=== PATIENT | female | born 1985 | race Caucasian/White ===

== ENCOUNTER → 2017-05-21 | Outpatient (CLI) | payer OTHER | END | disposition home or self-care (01) | LOC: C.LABSPEC 13:30 | PROVIDERS: ATTEND Obstetrics & Gynecology | DX: Z34.01 Encounter for supervision of normal first pregnancy, first trimester (principal); Z3A.00 Weeks of gestation of pregnancy not specified ==

== ENCOUNTER → 2017-05-26 | Outpatient (CLI) | payer OTHER ==
[2017-05-26 12:13] LABS: BASO % 0.3 %; BASO ABS # 0.02 K/uL (0-0.2); EOS ABS # 0.07 K/uL (0-0.5); HEMATOCRIT 35.6 % (37-47); IG# 0.01 K/uL (0.00-0.02); LYMPH % 24.3 %; LYMPH ABS # 1.74 K/uL (1.2-3.4); MEAN CELL VOLUME 89.9 fL (80-100); MEAN CORPUSCULAR HEMOGLOBIN 30.3 pg (25-34); MEAN CORPUSCULAR HGB CONC 33.7 g/dl (32-36); MEAN PLATELET VOLUME 9.5 fL (7.4-10.4); MONO % 6.7 %; MONO ABS # 0.48 K/uL (0.11-0.59); NEUT % 67.6 %; NEUT ABS # 4.85 K/uL (1.4-6.5); PLATELET COUNT 249 K/uL (130-400); RED CELL DISTRIBUTION WIDTH CV 12.2 % (11.5-14.5); RED CELL DISTRIBUTION WIDTH SD 39.9 fL (36.4-46.3); WHITE BLOOD COUNT 7.17 K/uL (4.8-10.8)
== END | disposition home or self-care (01) ==
LOC: C.LAB1850 10:46
PROVIDERS: ATTEND Obstetrics & Gynecology
DX: O99.283 Endocrine, nutritional and metabolic diseases complicating pregnancy, third trimester (principal); Z3A.00 Weeks of gestation of pregnancy not specified

== ENCOUNTER → 2017-06-30 | Outpatient (CLI) | payer OTHER | END | disposition home or self-care (01) | LOC: C.LAB1850 11:08 | PROVIDERS: ATTEND Internal Medicine Endocrinology, Diabetes & Metabolism | DX: E03.9 Hypothyroidism, unspecified (principal) ==

== ENCOUNTER → 2017-07-14 | Outpatient (CLI) | payer OTHER | END | disposition home or self-care (01) | LOC: C.LAB1850 09:37 | PROVIDERS: ATTEND Obstetrics & Gynecology | DX: O99.282 Endocrine, nutritional and metabolic diseases complicating pregnancy, second trimester (principal) ==

== ENCOUNTER → 2017-08-11 | Outpatient (CLI) | payer OTHER | END | disposition home or self-care (01) | LOC: C.LAB1850 10:07 | PROVIDERS: ATTEND Internal Medicine Endocrinology, Diabetes & Metabolism | DX: O99.282 Endocrine, nutritional and metabolic diseases complicating pregnancy, second trimester (principal); Z3A.00 Weeks of gestation of pregnancy not specified ==

== ENCOUNTER 2017-10-22 08:38 | Emergency (ER) | payer OTHER ==
[~2017-10-22] VITALS: Ht 177.8 cm; Wt 83.3 kg
[2017-10-22 08:43] VITALS: TEMP 36.9; Ht 177.8 cm; Wt 83.3 kg
[2017-10-22] MEDS ORDERED: HYDROCORTISONE HC 2.5% CRM 30GM TUBE EXT STA (09:00)
[2017-10-22] MEDS ORDERED: HYDROCORTISONE ACETATE 25 MG SUPP PR STA (09:00)
[2017-10-22] MEDS ORDERED: LIDOCAINE/EPINEPHRINE 1% 20 ML VIAL INFIL STA (09:00)
[2017-10-22] MEDS ORDERED: SENN1TAB77 PO (09:45)
[2017-10-22] MEDS ORDERED: DOCU-94 PO (09:45)
[2017-10-22 10:20] VITALS: BP 112/81; PULSE 66; O2SAT 100
--- NOTE | 2017-10-22 13:20 | EMERGENCY ROOM VISIT NOTE ---
History Report prepared by Camila: Zoey Ram Under the Supervision of: Dr. Nikita Black M.D. First contact with patient: 09:00 Chief Complaint: REFERRED BY DOCTOR Stated Complaint: THROMBOSED HEMORRHOID History of Present Illness The patient is a 32 year old female who presents to the Emergency Room with complaints of worsening rectal pain starting last night. The patient had difficulty sleeping through the night because the pain worsened last night. She was sent to the ED from [facility] for a thrombosed hemorrhoid. She has been using ice, sitz bath, and preparation H to no significant relief. She is currently 31 weeks . Her has been going well. Source of History: patient Onset: last night Position: other (rectal) Quality: other (thrombosed hemorrhoid) Timing: worsening Modifying Factors (Relieving): ice, other (sitz bath, preparation H) Review of Systems See HPI for pertinent positives & negatives. A total of 10 systems reviewed and were otherwise negative. Past Medical & Surgical Patient is 31 weeks with her first . Family History No pertinent family history stated Social History Smoking Status: Never Smoker Marital Status: Housing Status: lives with significant other Occupation Status: employed Current/Historical Medications Scheduled Docusate Sodium (Colace), 1 CAP PO BID Sennosides (Senokot), 8.6 MG PO HS Physical Exam Vital Signs Date Time Temp Pulse Resp B/P (MAP) Pulse Ox O2 Delivery O2 Flow Rate FiO2 10/22/17 10:20 66 20 112/81 100 10/22/17 08:43 36.9 110 18 116/65 95 Room Air Physical Exam GENERAL: Awake, alert, well-appearing, in no acute distress HENT: Normocephalic, atraumatic. Oropharynx unremarkable. EYES: Normal conjunctiva. Sclera non-icteric. NECK: Supple. No nuchal rigidity. FROM. No JVD. RESPIRATORY: Clear to auscultation. CARDIAC: Regular rate, normal rhythm. Extremities warm and well perfused. Pulses equal. ABDOMEN: Soft, non-distended. No tenderness to palpation. No rebound or guarding. No masses. RECTAL: Large thrombosed hemorrhoid, exquisitely tender to touch. MUSCULOSKELETAL: Chest examination reveals no tenderness. The back is symmetrical on inspection without obvious abnormality. There is no CVA tenderness to palpation. No joint edema. LOWER EXTREMITIES: Calves are equal size bilaterally and non-tender. No edema. No discoloration. NEURO: Normal sensorium. No sensory or motor deficits noted. SKIN: No rash or jaundice noted. Medical Decision & Procedures Procedure Hemorrhoid was anesthetized with 1% lidocaine with epinephrine. Iodine was applied to the area. An incision was made and thrombosed contents were removed. Patient tolerated the procedure well. ED Course 905: Past medical records reviewed. The patient was evaluated in room A4B. A complete history and physical examination was performed. 909: I treated the thrombosed hemorrhoid according to the procedure note. I discussed results and treatment plan with the patient. She verbalizes agreement and understanding. The patient is ready for discharge. Medical Decision This is a 32-year-old female who presents emergency department complaining of large hemorrhoid. This was incised as above. The patient is going to follow- up with surgery for her hemorrhoids and was in agreement with the treatment plan. Medication Reconcilliation Current Medication List: was personally reviewed by me Blood Pressure Screening Patient's blood pressure: Normal blood pressure Impression Primary Impression: Acute hemorrhoid Scribe Attestation The scribe's documentation has been prepared under my direction and personally reviewed by me in its entirety. I confirm that the note above accurately reflects all work, treatment, procedures, and medical decision making performed by me. Departure Information Dispostion Home / Self-Care Prescriptions Docusate Sodium (COLACE) 100 Mg Cap 1 CAP PO BID for 30 Days, #60 CAP Prov: Nikita Black MD 10/22/17 Sennosides (SENOKOT) 8.6 Mg Tab 8.6 MG PO HS for 30 Days, #30 TAB Prov: Nikita Black MD 10/22/17 Referrals No Doctor, Assigned (PCP) Shawn Tidwell, DO Forms HOME CARE DOCUMENTATION FORM, IMPORTANT VISIT INFORMATION, WORK / SCHOOL INSTRUCTIONS Patient Instructions Hemorrhoid Surg Dc, Hemorrhoids, Hemorrhoids Thrombosed, My [facility] Additional Instructions Take 10 oz bottle of Miralax add to 16 oz of gatorade Drink slowly over next 48 hours Prep H safe in Take 1000 mg Tylenol every 6 hours Follow up with DR Ricci's office You have been examined and treated today on an emergency basis only. This is not a substitute for, or an effort to provide, complete comprehensive medical care. It is impossible to recognize and treat all injuries or illnesses in a single emergency department visit. It is therefore important that you follow up closely with your PCP. Call as soon as possible for an appointment. Thank you for your time and consideration. I look forward to speaking with you again soon. Please don't hesitate to call us if you have any questions.
== END 2017-10-22 10:23 | disposition home or self-care (01) ==
LOC: C.EDB 08:39 → C.EDA 10:23
DX: O22.43 Hemorrhoids in pregnancy, third trimester (principal); Z3A.31 31 weeks gestation of pregnancy; Z79.899 Other long term (current) drug therapy

== ENCOUNTER 2021-09-27 09:03 | Inpatient (IN) ==
--- NOTE | 2021-09-24 11:06 | Anesthesiology Consultation ---
Date of Service September 24, 2021 Assessment & Plan (1) Encounter for pre-operative examination: Chart Review Chart Review: carpentry supervisor initiated Pt desires (hx of complicated hemorrhoids requiring multiple surgeries) per OB records Per nursing assessment 09/24/2021, pt admits to local travel only. Wears mask in public. No known Covid positive exposures or Covid related symptoms. No known Covid infection in the past 90 days. Pt is fully vaccinated for Covid. Preop Covid testing scheduled 09/25/21= will await results Labor epidural 12/22/17= Done at L3-4. History Surgery Operation Date: 09/27/21 10:30 Proposed Procedures p Section (Delivery of Baby through Abdominal Incision) - Tere Garcia MD, FACOG Height/Weight Height: 5 ft 10 in Weight: 86.183 kg Allergies Allergy/AdvReac Type Severity Reaction Status Date / Time peach Allergy Mild Swelling Verified 09/23/21 13:47 of Lip/Tongue/Throat No Known Drug Allergies Allergy Verified 09/23/21 13:47 Medications Home Medications Medication Instructions Recorded Confirmed Last Taken cetirizine 10 mg tablet (Zyrtec) 10 mg PO DAILY PRN 11/28/18 09/24/21 Unknown hydrocortisone acetate 25 mg 25 mg WA BID PRN 09/24/21 09/24/21 Unknown rectal suppository levothyroxine 175 mcg tablet 175 mcg PO QAM 09/24/21 09/24/21 Unknown (Synthroid) prenat.vits,laura,[id number] 1 tab PO QAM 09/24/21 09/24/21 Unknown Past Medical History Medical History Asthma History of childhood asthma- now more seasonal External hemorrhoids with complication Hypothyroidism Nausea and vomiting after administration of anesthetic agent Past Family History Family History Sister Cystic fibrosis carrier Thyroid disease Aunt Multiple sclerosis Mother Multiple sclerosis Thyroid disease Aunt Rheumatoid arthritis Past Surgical History Surgical History History of colonoscopy History of foot surgery screws in left foot History of rectal surgery hemorrhoidectomy 2019 History of wisdom tooth extraction Social History Smoking Status: Never smoker Do You Dip or Chew Tobacco: No Hx Alcohol Use: Yes Alcohol type: wine alcohol intake frequency: a few times a month Hx Substance Use: No substance use type: does not use
[~2021-09-27 09:03] MED LIST: CITRIC ACID/SODIUM CITRATE 15 ML UDC PO SCH; LACTATED RINGER'S 1,000 ML IV SCH
[2021-09-27] MEDS ORDERED: MoRPHine SULFATE PF 1 MG/ML 10 ML AMP/VIAL ONE (12:42)
[2021-09-27] MEDS ORDERED: fentaNYL citrate 100 MCG/2 ML VIAL ONE (12:42)
[2021-09-27] MEDS ORDERED: LACTATED RINGER'S 1,000 ML IV PRN (12:47)
--- NOTE | 2021-09-27 13:16 | History & Physical Bridge Note ---
Date of Service September 27, 2021 History & Physical Bridge Note I have examined the patient, reviewed the History & Physical and in the interval since the performance of the History & Physical I have noted the following changes of clinical significance: no changes noted
[2021-09-27 13:26] LABS: Hematocrit (blood only) 31.2 % (37-47); Hemoglobin 9.8 g/dL (12.0-16.0); Mean Corpuscular Hgb Conc 31.4 g/dL (32-36); Mean Corpuscular Volume 92.3 fL (80-100); Mean Platelet Volume 10.9 fL (7.4-10.4); Platelet Count 163 K/uL (130-400); RDW Coefficient of Variation 13.6 % (11.5-14.5); RDW Standard Deviation 45.7 fL (36.4-46.3); Red Blood Count 3.38 M/uL (4.2-5.4)
[2021-09-27] MEDS ORDERED: ceFAZolin 2000MG 2,000 MG/15 ML SYR IV ONE (13:30)
[2021-09-27] MEDS ORDERED: PHENYLEPHRINE 100MCG/ML 5ML SYR ONE (13:36)
[2021-09-27] MEDS ORDERED: OXYTOCIN 10 UNITS/ML 10ML VIAL ONE (13:36)
[2021-09-27] MEDS ORDERED: ONDANSETRON INJ 2 MG/ML 2 ML VIAL ONE (13:36)
[2021-09-27] MEDS ORDERED: diphenhydrAMINE 50 MG/ML VIAL IV PRN (14:17)
[2021-09-27] MEDS ORDERED: ePHEDrine sulfate 50 MG/ML AMP IV PRN (14:17)
[2021-09-27] MEDS ORDERED: MoRPHine SULFATE 2 MG/ML CARP IV PRN (14:17)
[2021-09-27] MEDS ORDERED: NALOXONE HCL 0.4 MG/1 ML VIAL/CARP IV PRN (14:17)
[2021-09-27] MEDS ORDERED: NALOXONE HCL 1 MG in SODIUM CHLORIDE 0.9% 1000ML 1,000 ML IV PRN (14:17)
[2021-09-27] MEDS ORDERED: NALBUPHINE HCL INJ 10 MG/ML AMP IV PRN (14:17)
[2021-09-27] MEDS ORDERED: HYDROmorphone INJ 0.5 MG/0.5 ML SYR IV PRN (14:17)
[2021-09-27] MEDS ORDERED: NALOXONE HCL 0.08 MG in SYRINGE 1.8 ML IV PRN (14:17)
[2021-09-27] MEDS ORDERED: LACTATED RINGER'S 500 ML IV PRN (14:17)
[2021-09-27] MEDS ORDERED: MoRPHine SULFATE PF 1 MG/ML 10 ML AMP/VIAL INT SPINAL ONE (14:17)
[2021-09-27] MEDS ORDERED: SODIUM CHLORIDE 0.9% 1000ML 1,000 ML IV SCH (14:30)
[2021-09-27] MEDS ORDERED: NO NARCOTICS OR SEDATIVES SCH (14:30)
--- NOTE | 2021-09-27 15:01 | Operative Report ---
PG Post Operative Report Pre & Post Diagnosis Operation Date: 09/27/21 10:50 <No data on this case meets the specified criteria> I identified the patient and participated in the time-out.: Yes Procedure Operation Date: 09/27/21 10:50 Actual Procedures p Section in LD for live male at - Tere Garcia MD, FACOG Surgeon Tere Garcia MD, FACOG [employer] Fire[employer]man . Estimated Blood Loss 500 Findings Consistent with Post-Op Diagnosis Specimens cord blood, gases Description of Procedure Regional anesthetic had been given by anesthesia patient was prepped and draped with a leftward tilt preoperative antibiotics had been given in appropriate timing by anesthesiology. Once the prep was allowed to fully dry timeout was performed. Pickups with teeth were used to test the incision area was found to be adequate for incision as the patient did not feel sharp pain. Scalpel was used to make a Pfannenstiel incision on the lower abdomen. We then cut through the subcutaneous fat down to the level of the anterior rectus sheath fascia this was cut in the midline and then extended laterally with the curved Arnett scissors. At this stage we then placed 2 Adán clamps on the anterior aspect of the fascia. Using the curved Arnett's we are able to dissect the fascia superiorly away from the rectus muscles. Care was taken to maintain hemostasis. Adán clamps were then placed to the inferior aspect of the anterior sheath of the fascia. Fascia was then dissected away from the rectus muscles inferiorly towards the pubic bone. A Adán was then placed in the midline both inferiorly and superiorly. This was to allow exposure by retraction rectus muscles were in the midline with were then able to cut through the peritoneum and then enter the peritoneal cavity. Opening was enlarged to allow exposure of the peritoneal cavity both superiorly and inferiorly. Once adequate space was obtained a bladder retractor was placed to expose the lower segment Metzenbaums were used to dissect the bladder flap inferiorly away from the uterus. This was done sharply bladder retractor was then repositioned to expose the lower segment of the uterus Fresh scalpel was used to make a low transverse incision on the uterus. Uterus was then entered bluntly with the operators finger, membranes ruptured and the opening was enlarged using the operators fingers bluntly pulling superiorly and inferiorly to allow exposure. Baby was delivered by first flexion of the head elevation of the head out of the pelvis and then pressure by the assistant construction superintendent on the maternal abdomen. Initial attempt was unsuccessful so a vacuum was applied to the baby's head and was then easily delivered after that baby's head was then delivered mouth and then nares were suctioned and then using gentle traction the baby was fully delivered. Live vigorous . Fluid was meconium stained cord clamped and cut cord gases obtained cord blood obtained baby handed to pediatrics. Placenta removed was removed with traction we ensure the entire placenta was removed with a moist lap sponge into the uterus Uterus was then exteriorized. IV Pitocin had been started by anesthesia tone improved there were no extensions the uterus was then closed using 0 Monocryl in a 2 layer closure the first layer closed in a running locked fashion from left to right and then a second closure from left to right in a running nonlocked fashion. At this stage hemostasis was excellent. Uterus was placed back in the peritoneal cavity with suction irrigation out and inspection of the uterus at this stage revealed excellent hemostasis Retractors were removed urine color was clear at this stage of the case we inspected the rectus muscles they were hemostatic fascia was closed with 0 Vicryl subcutaneous fat was irrigated and closed with 3-0 Vicryl skin closed with 4-0 subcuticular Monocryl I attest to the content of the Intraoperative Record and any orders documented therein. Any exceptions are noted below. OB Procedure Charges 36494
--- NOTE | 2021-09-27 15:07 | Anesthesiology Progress Note ---
Date of Service September 27, 2021 Anesthesia Post Procedure Vital Signs Vital Signs: Temp Pulse Resp BP Pulse Ox 09/27/21 15:05 87 100 09/27/21 15:04 85 111/54 L 09/27/21 11:37 74 128/82 09/27/21 11:30 18 09/27/21 10:20 74 128/82 09/27/21 10:17 37.1 C 18 Transfer of Care Handoff Completed per policy Notes Mental Status: alert / awake / arousable and participated in evaluation Patient Amnestic to Procedure: No Nausea / Vomiting: adequately controlled Pain: adequately controlled Airway Patency, RR, SpO2: stable & adequate BP & HR: stable & adequate Hydration State: stable & adequate Neuraxial Anesthesia: was administered and sensory block is resolving Anesthetic Complications: no major complications apparent and Pt Satisfied with anesthetic care
[2021-09-27 15:22] LABS: Base Excess Cord Venous Blood -2.4 mEq/L (-7.7-1.9); Cord Venous Blood HCO3 24 mmol/L (18.4-26.8); Cord Venous Blood PCO2 45 mmHg (30.4-57.2); Cord Venous Blood PO2 21 mmHg (14.1-43.3); Cord Venous Blood pH 7.33 (7.20-7.44); O2 Saturation Cord Venous Bld < 60.0 % (<68)
[2021-09-27] MEDS ORDERED: ACETAMINOPHEN 325 MG TAB PO PRN (15:40)
[2021-09-27] MEDS ORDERED: HYDROCORTISONE ACETATE 25 MG SUPP PR PRN (15:40)
[2021-09-27] MEDS ORDERED: bisacodyL 10 MG SUPP PR PRN (15:40)
[2021-09-27] MEDS ORDERED: OXYTOCIN 30 UNITS/500 ML BAG IV PRN (15:40)
[2021-09-27] MEDS ORDERED: DIPHTHERIA/TETANUS/PERTUSSIS 0.5 ML SYR/VIAL IM ONE (15:40)
[2021-09-27] MEDS ORDERED: BENZOCAINE 20% AER SPR 82.5 GM CAN EXT PRN (15:40)
[2021-09-27 16:08] LABS: Base Excess Cord Arterial Bld -1.4 mEq/L (-9-1.8); CO2 Cord Arterial Blood 56 mmHg (39.1-73.5); HCO3 Cord Arterial Blood 26 mmol/L (19.7-28.5); Oxygen Sat Cord Arterial Blood < 60.0 % (<60); PO2 Cord Arterial Blood 11 mmHg (4.1-31.7); pH Cord Arterial Blood 7.28 (7.1-7.38)
[2021-09-27] MEDS ORDERED: SODIUM CHLORIDE 0.9% 250 ML IV PRN (16:47)
[2021-09-27] MEDS ORDERED: OXYTOCIN IV SCH (17:30)
[2021-09-27] MEDS ORDERED: LACTATED RINGER S IV SCH (17:30)
[2021-09-27] MEDS: OXYTOCIN 20 UNITS in LACTATED RINGER'S 1,000 ML IV SCH (18:37)
[2021-09-27] MEDS: KETOROLAC 30 MG/ML VIAL IV PRN (19:45)
[2021-09-27] MEDS: DOCUSATE SODIUM 100 MG CAP PO SCH (22:08)
[2021-09-27] MEDS: SIMETHICONE 80 MG CHEW PO SCH (22:08)
[2021-09-28] MEDS: OXYTOCIN 20 UNITS in LACTATED RINGER'S 1,000 ML IV SCH (02:43)
[2021-09-28] MEDS: KETOROLAC 30 MG/ML VIAL IV PRN (04:12)
[2021-09-28] MEDS: LEVOTHYROXINE SODIUM 175 MCG TABLET PO SCH (06:33)
[2021-09-28 07:32] LABS: Hematocrit (blood only) 27.2 % (37-47); Hemoglobin 8.9 g/dL (12.0-16.0); Mean Corpuscular Hemoglobin 29.5 pg (25-34); Mean Corpuscular Hgb Conc 32.7 g/dL (32-36); Mean Corpuscular Volume 90.1 fL (80-100); Mean Platelet Volume 10.1 fL (7.4-10.4); Platelet Count 137 K/uL (130-400); RDW Coefficient of Variation 13.6 % (11.5-14.5); RDW Standard Deviation 44.6 fL (36.4-46.3); Red Blood Count 3.02 M/uL (4.2-5.4); White Blood Count 8.45 K/uL (4.8-10.8)
--- NOTE | 2021-09-28 08:01 | Obstetrical Progress Note ---
Date of Service September 28, 2021 Assessment & Plan (1) Encounter for care and examination after delivery: Plan: Patient is a 36-year-old now female who delivered via at 39 and 1/7 weeks gestation, postoperative day 1. complicated by advanced maternal age and hypothyroidism. -Continue routine care, keep today -GBS positive--> treated with cefazolin, blood type A+, antibody negative, rubella immune -Hemoglobin 8.9, continue to monitor -Voiding trial later today followed by ambulation -Ambulation encouraged when able -Encourage breast-feeding -Follow-up in [address] Garcia Admission and Anticipated Discharge Date Admission Date: September 27, 2021 Supervising Physician Co-Signing Physician Notes Resident Physician Supervision Note: I was present with Dr. Castillo during the history and exam. I discussed the case with the resident and agree with the findings and plan as documented in the note. Any exceptions or clarifications are listed here: POD#1 doing well. Routine recovery. Documented By: Shaye Rojas, DO Subjective Patient is a 36-year-old now female who delivered via at 39 and 1/7 weeks gestation, postoperative day 1. complicated by advanced maternal age and hypothyroidism. Patient overall doing well today but is experiencing some itchiness especially on her legs where the SCDs are. Otherwise Beltran catheter still in place so unable to ambulate at this time. Patient has not eaten since and would like some food when able. Has been drinking fluids without difficulty or nausea or vomiting. Patient is breast-feeding without difficulty. Passing gas but no bowel movement as of yet. Otherwise denies fever, chills, chest pain, shortness of breath, UTI symptoms, or headache. Patient has no other complaints at this time. Review of Systems Review of Systems: All systems reviewed & are unremarkable except as noted in HPI & below Physical Exam Constitutional: WD/WN, vitals as above Eyes: + anicteric sclerae Neck: trachea midline, no thyromegaly Respiratory: normal respiratory effort, lungs clear to auscultation Cardiovascular: RRR, no murmur, no edema Gastrointestinal (Abdomen): Inspection/Auscultation: abdomen normal to inspection Percussion/Palpation: + abdomen tender and abdomen soft Musculoskeletal: Head/Neck/Chest: normocephalic and head atraumatic Skin: no rashes, warm and dry There is a surgical incision of the inferior abdomen that has clear bloody discharge but has no surrounding erythema or purulence. Neurologic: moves all extremities Psychiatric: A+Ox3, euthymic affect Genitourinary: Uterine fundus palpated at the level of the umbilicus, firm Results & Data ([facility]) Vital Signs (Past 12 Hours) Vital Signs Temp Pulse Resp BP Pulse Ox Pulse Ox 09/28/21 05:09 18 97 09/28/21 04:00 18 98 09/28/21 03:47 36.8 C 74 18 129/75 98 09/28/21 03:30 18 97 09/28/21 02:30 18 97 09/28/21 01:30 18 97 09/28/21 00:15 18 98 09/27/21 22:57 36.4 C L 72 16 121/71 97 09/27/21 19:30 36.7 C 84 18 130/75 97 97 09/27/21 18:10 36.5 C 72 18 133/75 100
[2021-09-28] MEDS ORDERED: DC INTRASPINAL MORPHINE SCH (08:17)
[2021-09-28] MEDS ORDERED: CETIRIZINE HCL 10 MG TABLET PO PRN (08:17)
[2021-09-28] MEDS ORDERED: KETOROLAC 30 MG/ML VIAL IV PRN (08:30)
[2021-09-28] MEDS: FERROUS SULFATE 325 MG TAB PO SCH (08:40)
[2021-09-28] MEDS: PRENATAL VITAMIN 1 TAB PO SCH (08:40)
[2021-09-28] MEDS: SIMETHICONE 80 MG CHEW PO SCH ×4 (08:40→21:52)
[2021-09-28] MEDS: DOCUSATE SODIUM 100 MG CAP PO SCH ×2 (08:40→21:52)
[2021-09-28] MEDS: oxyCODONE/ACETAMINOPHEN 5mg/325mg TAB PO PRN ×4 (08:41→21:53)
[2021-09-28] MEDS: IBUPROFEN 600 MG TAB PO PRN ×4 (08:41→21:52)
[2021-09-28] MEDS ORDERED: LEVOTHYROXINE SODIUM 175 MCG TABLET PO SCH (09:00)
[2021-09-28] MEDS ORDERED: bisacodyL 5 MG TABEC PO SCH (20:00)
[2021-09-29] MEDS: IBUPROFEN 600 MG TAB PO PRN ×3 (02:14→12:15)
[2021-09-29] MEDS: oxyCODONE/ACETAMINOPHEN 5mg/325mg TAB PO PRN ×3 (02:15→12:16)
[2021-09-29] MEDS: LEVOTHYROXINE SODIUM 175 MCG TABLET PO SCH (07:12)
[2021-09-29 07:37] LABS: Hematocrit (blood only) 27.3 % (37-47); Hemoglobin 8.8 g/dL (12.0-16.0)
[2021-09-29] MEDS: FERROUS SULFATE 325 MG TAB PO SCH (07:54)
[2021-09-29] MEDS: DOCUSATE SODIUM 100 MG CAP PO SCH (07:54)
[2021-09-29] MEDS: PRENATAL VITAMIN 1 TAB PO SCH (07:54)
[2021-09-29] MEDS: SIMETHICONE 80 MG CHEW PO SCH ×2 (07:54→12:15)
--- NOTE | 2021-09-29 08:15 | Obstetrical Progress Note ---
Date of Service September 29, 2021 Assessment & Plan (1) Encounter for care and examination after delivery: Postoperative from section patient meets discharge criteria as she is ambulating well tolerating an oral diet has minimal bleeding and no extremity pain. Discharge instructions were reviewed and prescriptions were sent to her pharmacy of choice patient advised to call with any concerns and follow-up in the office discussed Subjective Ambulation: ambulating normally Voiding: no voiding problems Passing Gas:: Yes Diet Tolerance:: regular diet Lochia:: Small Physical Exam Gastrointestinal (Abdomen) normal bowel sounds, soft, nontender, no hepatosplenomegaly Results & Data ([facility]) Vital Signs (Past 12 Hours) Vital Signs Temp Pulse Resp BP Pulse Ox 09/29/21 00:00 98.1 F 66 16 134/73 94
== END 2021-09-29 13:20 | disposition home or self-care (01) | DRG 788 ==
LOC: 4S1 09:03 → EDSTATUS 10:30 → 4E2 17:04